=== PATIENT | female | born 1985 | race Two or more races ===

== ENCOUNTER 2024-12-18 12:24 | Emergency (ER) | payer MEDICAID, SELFPAY ==
[2024-12-18 12:33] VITALS: BP 120/82; PULSE 108; RESP 17; TEMP 37; O2SAT 99; BMI 29.1
[2024-12-18 12:40] VITALS: PULSE 110; RESP 18; O2SAT 98; BMI 29.1
--- NOTE | 2024-12-18 12:46 | PD.EDSEIZ ---
ED Seizures RME/HPI General Chief Complaint: Seizure Stated Complaint: SEIZURE Time Seen by Provider: 12/18/24 12:41 Arrival date/time: 12/18/24 12:24 RME / HPI RME / HPI Narrative: 39-year-old female patient with significantly history of seizure, currently taking Tegretol Lamictal and Keppra was brought in by EMS for witnessed tonic-clonic seizure lasting for 5 minutes. Patient was sitting inside the car when it happened. According to her she was so stressed out because she cannot get to her son playing basketball this morning. Currently patient is complaining of headache severity mild. Denies any chest pain abdominal pain sore throat or any other flulike symptoms. Denies any dysuria also. Patient told me that she is taking her ex seizure medication with good compliance. Currently sees [facility] of 15 Related Data Home Medications ?Medication ?Instructions ?Recorded ?Confirmed carbamazepine 200 mg tablet 400 mg PO BID #0 tabs 10/20/16 01/21/21 (Tegretol) lamotrigine 200 mg tablet 200 mg PO BID #0 tabs 10/20/16 01/21/21 (Lamictal) levetiracetam 500 mg tablet 1,500 mg PO BID #0 tabs 10/20/16 01/21/21 (Keppra) Previous Rx's ?Medication ?Instructions ?Recorded tramadol 50 mg tablet 50 mg PO Q6H PRN pain #20 tabs 12/01/21 carbamazepine 200 mg tablet 200 mg PO BID #60 tabs 12/18/24 (Tegretol) Allergies Allergy/AdvReac Type Severity Reaction Status Date / Time topiramate Allergy Severe BODY Verified 12/18/24 15:48 NUMBNESS Review of Systems Review of Systems Narrative Review of Systems: Review of system reviewed and within normal limits except mentioned in HPI ED Exam Narrative Physical exam: VITAL SIGNS: Reviewed. GENERAL APPEARANCE: Alert and interactive, follows commands, no acute distress, HEAD AND FACE: Non-traumatic. ENT: PERRL, pink conjunctivitis, eyelid no trauma, Mucous membrane moist. NECK: Supple, nontender, no nuchal rigidity. CHEST: No tenderness, no crepitus, no paradoxical movement, no retractions. LUNGS: Clear, well ventilated, symmetric, no rales, no wheezing, no ronchi, no stridor, good breath sounds bilaterally. HEART: Regular rate, regular rhythm, no murmur, no gallops. ABDOMEN: Soft, positive bowel sounds, nondistended, no guarding, nontender, no rebound, no masses, RECTAL: Deferred. GENITAL: Deferred. NEUROLOGICAL: Gross motor function intact sensory function intact, Appropriate for age. MUSCULOSKELETAL: low back nontender, full range of motion. EXTREMITIES: Nontender, full range of motion. SKIN: Color pink, dry, no rash, no lacerations, no abrasions, no contusions. LYMPHATICS: Deferred. Course Quality Measures none Orders Category Date Time Status CBC [CBC] Stat Lab 12/18/24 13:33 Completed CMP [Comprehensive Metabolic Panel] Stat Lab 12/18/24 13:33 Completed UA, C/S IF [Urinalysis, C/S if Indicated] Stat Lab 12/18/24 13:26 Completed Acetaminophen Tab [Tylenol ES Tab] Med 12/18/24 12:45 Discontinued 1,000 mg PO X1 ONE carBAMazepine [Tegretol] Med 12/18/24 14:27 Discontinued 200 mg PO X1 ONE carBAMazepine [Tegretol] Med 12/18/24 14:18 Discontinued 400 mg PO X1 ONE levETIRAcetam INJ [Keppra Inj] Med 12/18/24 12:45 Discontinued 1,000 mg IVP X1 ONE Vital Signs Vital signs: Vital Signs Temperature 98.6 F 12/18/24 12:33 Pulse Rate 108 H 12/18/24 12:33 Respiratory Rate 17 12/18/24 12:33 Blood Pressure 120/82 12/18/24 12:33 Pulse Oximetry (%) 99 12/18/24 12:33 Oxygen Delivery Method Nasal Cannula 12/18/24 12:33 Oxygen Flow Rate 2 12/18/24 12:33 Seizure MDM Narrative MDM Narrative:: 39-year-old female patient with significantly history of seizure, currently taking Tegretol Lamictal and Keppra was brought in by EMS for witnessed tonic-clonic seizure lasting for 5 minutes. Patient was sitting inside the car when it happened. According to her she was so stressed out because she cannot get to her son playing basketball this morning. Currently patient is complaining of headache severity mild. Denies any chest pain abdominal pain sore throat or any other flulike symptoms. Denies any dysuria also. Patient told me that she is taking her ex seizure medication with good compliance. Currently sees GCS of 15 No recurrence of seizure noted in the emergency room. Patient received a dose of Tegretol in the emergency room because according to her sister ran out of her Tegretol for the last 2 days. Patient was given a loading dose. Keppra. Patient workup today all came back normal Patient appears nontoxic and hemodynamically stable. Patient discharged home and instructed to follow-up with primary care provider in 24 to 48 hours. Instructed to return to the emergency department immediately if worsening of symptoms Patient data External records reviewed:: None Clinical information provided by:: patient Social determinants that could affect healthcare access:: none Patient has the following chronic illnesses:: Seizure disorder How is presenting disease/condition affected by chronic disease/condition?: exacerbated by Evaluation data The following diagnostics were reviewed and interpreted by me:: lab results Lab and/or radiology exams considered but not ordered:: None Interpretation Summary: Laboratory couple came back normal Medications / Prescriptions Medications or Prescriptions considered but not ordered:: None Medication administrations:: Medication Administration History Discontinued Medications Acetaminophen (Acetaminophen 500 Mg Tablet) 1,000 mg PO X1 ONE Stop: 12/18/24 12:46 Last Admin: 12/18/24 13:33 Dose: 1,000 mg Documented By: ROMY Carbamazepine (Carbamazepine 200 Mg Tablet) 400 mg PO X1 ONE Stop: 12/18/24 14:19 Last Admin: 12/18/24 14:52 Dose: Not Given Documented By: ROMY Non-Admin Reason: Discontinued Carbamazepine (Carbamazepine 200 Mg Tablet) 200 mg PO X1 ONE Stop: 12/18/24 14:28 Last Admin: 12/18/24 15:33 Dose: 200 mg Documented By: ROMY Comments: DELIVERED BY PHARMACY AT THIS TIME. Levetiracetam (Levetiracetam Inj 100 Mg/Ml Vial 5ml) 1,000 mg IVP X1 ONE Stop: 12/18/24 12:46 Last Admin: 12/18/24 13:34 Dose: 1,000 mg Documented By: ROMY Tylenol, Tegretol and Keppra Consultations Consultation(s) initiated? (list below): No Diagnosis Seizure Differential Diagnosis: intractable seizure disorder, focal seizure and epileptic seizure Most likely diagnosis given after review of the tests above:: Breakthrough seizure, history of seizure Admission Indicated Admission indicated?: not indicated Admission Request Was there a request for admission?: No Disposition Plan Disposition Plan: Discharge Discharge Attestation Discharge Attestation: The patient was given an opportunity to ask questions and understood the discharge instructions. Discharge instructions specifically effects, indications for sooner follow up or return to the emergency department, and the expected course of current diagnosis. Patient condition: Stable Discharge Plan Plan Patient Disposition: HOME (Self Care) Disposition Comment: stable Prescriptions/Referrals Prescriptions/Med Rec: New carbamazepine [Tegretol] 200 mg tablet 200 mg PO BID Qty: 60 0RF No Action lamotrigine [Lamictal] 200 MG tablet 200 mg PO BID Qty: 0 levetiracetam [Keppra] 500 MG tablet 1,500 mg PO BID Qty: 0 carbamazepine [Tegretol] 200 MG tablet 400 mg PO BID Qty: 0 tramadol 50 mg tablet 50 mg PO Q6H PRN (Reason: pain) Qty: 20 0RF Referrals: Fabio Milian MD [Primary Care Provider] - In 1 week Problem List Clinical Impression: Seizure, Breakthrough seizure Patient/Caregiver Discharge Instructions Education Materials: ED Seizure, Recurrent (Adult) Additional Instructions: Thank you for the opportunity for serving you today. You are stable for discharged . You are advised to: Follow-up with your PCP in 1 to 2 days Return to ED for worsening of symptoms Increase oral fluids Take medication as prescribed Print Language: Fijian Stand Alone Forms: Alejandra Award Info., Patient Portal Info Letter PA/[employer] Supervising Physician BURTON/AMANDA Supervising Physician: MD Stacie
[2024-12-18] MEDS: ACETAMINOPHEN 500 MG TABLET 1000 MG PO (13:33)
[2024-12-18] MEDS: levETIRAcetam INJ 100 MG/ML VIAL 5ML 1000 MG IVP (13:34)
[2024-12-18 13:44] LABS: Collection Type, Urine Clean Catch
[2024-12-18 13:54] LABS: Basophils % (Auto) 0 % (0-2.5); Eosinophils # (Auto) 0.1 Thou/mm3 (0.0-0.5); Eosinophils % (Auto) 0 % (0-10); Hematocrit 41.6 % (36.0-46.0); Immature Granulocytes % (Auto) 0 % (0-0); Immature Granulocytes Auto 0.05 Thou/mm3 (0.00-0.00); Lymphocytes # (Auto) 1.1 Thou/mm3 (1.0-4.8); Lymphocytes % (Auto) 8 % (10-50); Mean Corpuscular HGB Conc 33.7 g/dl (31.0-37.0); Mean Corpuscular Hemoglobin 31.3 pg (25.0-35.0); Mean Corpuscular Volume 93 fL (80-100); Monocytes # (Auto) 0.9 Thou/mm3 (0.0-0.8); Monocytes % (Auto) 6 % (0-12); Neutrophils # (Auto) 11.8 Thou/mm3 (1.8-7.7); Neutrophils % (Auto) 85 % (37-80); Nucleated Red Blood Cell % 0 /100 WBC (0); Platelet Count 269 Thou/mm3 (140-440); RDW Standard Deviation 43.5 fL (36.4-46.3); Red Blood Count 4.47 Miln/mm3 (4.00-5.20); White Blood Count 13.9 Thou/mm3 (3.6-11.0)
[2024-12-18 14:03] LABS: Bacteria,Urine Rare; Bilirubin,Urine Negative (Negative); Blood,Urine Negative (Negative); Clarity,Urine Clear (Clear/Hazy); Color,Urine Yellow (Lt Yel-Yel); Culture Indicated,Urine Not Indicated; Glucose, Urine Negative (Negative); Hyaline Casts,Urine < 1 /hpf (0-1); Ketones,Urine Trace (Negative); Leukocyte Esterase,Urine Positive (Negative); Nitrite,Urine Negative (Negative); Protein,Urine 1+ (Neg - Trace); RBC,Urine 2 /hpf (0-3); Specific Gravity,Urine 1.029 (1.001-1.035); Squamous Epithelial Cell,Urine 2 /hpf (0-5); Urobilinogen,Urine Negative mg/dL (0.0-1.0); WBC,Urine 7 /hpf (0-5)
[2024-12-18 14:20] LABS: Alanine Aminotransferase 21 U/L (10-49); Albumin, Serum 4.4 gm/dL (3.5-5.0); Albumin/Globulin Ratio 1.8 (1.2-2.2); Alkaline Phosphatase 95 U/L (46-116); Anion Gap 5 (7-16); Aspartate Amino Transferase 16 U/L (0-34); BUN/Creatinine Ratio 14 Ratio (12-20); Bilirubin,Total 0.4 mg/dL (0.3-1.2); Blood Urea Nitrogen 10 mg/dL (9-23); Calcium 9.3 mg/dL (8.3-10.6); Calcium (Corrected) 9.3 mg/dL (8.5-10.1); Carbon Dioxide 29.8 mMol/L (20.0-31.0); Chloride 108 mMol/L (98-107); Creatinine (Component) 0.7 mg/dL (0.6-1.3); Estimated Creatinine Clearance 112.3 mL/min (>60); Globulin 2.4 gm/dL (2.3-3.5); Glucose 88 mg/dL (74-106); Osmolality,Calculated 282 (275-295); Potassium 3.7 mMol/L (3.4-5.1); Sodium 143 mMol/L (136-145); Total Protein 6.8 gm/dL (5.7-8.2); eGFR > 60 See Note
[2024-12-18 15:27] LABS: Sperm,Urine Present
[2024-12-18] MEDS: carBAMazepine 200 MG TABLET PO (15:33)
[2024-12-18 15:35] VITALS: BP 95/60; PULSE 89; RESP 17; O2SAT 99
[2024-12-18 16:25] VITALS: BP 96/56; PULSE 73; RESP 18; O2SAT 98
== END 2024-12-18 16:36 | disposition home or self-care (01) ==
PROVIDERS: Nurse Practitioner Family; Emergency Provider Emergency Medicine; PCP Family Medicine
DX: G40.909 Epilepsy, unspecified, not intractable, without status epilepticus (principal); Z79.899 Other long term (current) drug therapy
CPT/HCPCS: 36415; 80053; 81001; 85025; 96374; 99284; J1953; A9270